=== PATIENT | female | born 1970 | race African-American/Black ===

== ENCOUNTER 2017-02-04 06:45 | Day surgery (SDC) | payer BC ==
[2017-02-03 12:22] VITALS: BMI 24.7
[~2017-02-04 06:45] MED LIST: LACTATED RINGERS SOLUTION 1,000 ML IV SCH; ONDANSETRON 4 MG/2 ML VIAL IVPUSH PRN; PROMETHAZINE HCL 25 MG/1 ML VIAL IVPUSH PRN; oxyCODONE HCL 5 MG TABLET PO PRN
[2017-02-04] MEDS ORDERED: PROPOFOL 20 ML ONE ×2 (07:21)
[2017-02-04] MEDS ORDERED: DEXAMETHASONE SOD PHOSPHATE 4 MG/1 ML VIAL ONE (07:24)
[2017-02-04] MEDS ORDERED: ONDANSETRON 4 MG/2 ML VIAL ONE (07:24)
[2017-02-04] MEDS ORDERED: KETOROLAC TROMETHAMINE 30 MG/1 ML VIAL ONE (07:24)
[2017-02-04] MEDS ORDERED: MINERAL OIL/PETROLATUM,WHITE 3.5 GM TUBE ONE (07:25)
[2017-02-04] MEDS ORDERED: MIDAZOLAM HCL 2 MG/2 ML SINGLE DOSE VIAL ONE ×2 (07:26)
[2017-02-04] MEDS ORDERED: DESFLURANE GAS 240 ML BOTTLE IH ONE (07:51)
[2017-02-04] MEDS ORDERED: ACETAMINOPHEN INJECTION 100 ML IVPB ONE (07:51)
[2017-02-04] MEDS ORDERED: SEVOFLURANE 250 ML BTL ONE (07:51)
[2017-02-04] MEDS ORDERED: LACTATED RINGERS SOLUTION 1,000 ML IV SCH ×2 (09:15→09:30)
[2017-02-04] MEDS ORDERED: IBUPROFEN 600 MG TABLET (FP) PO PRN (09:25)
[2017-02-04] MEDS ORDERED: ONDANSETRON 4 MG/2 ML VIAL IVPUSH PRN ×2 (09:50→09:51)
[2017-02-04] MEDS ORDERED: oxyCODONE HCL 5 MG TABLET PO PRN (09:51)
[2017-02-04] MEDS ORDERED: PROMETHAZINE HCL 25 MG/1 ML VIAL IVPUSH PRN (09:52)
[2017-02-04 10:49] VITALS: BP 141/80; PULSE 89; TEMP 97.7
--- NOTE | 2017-02-04 15:59 | OP ---
DATE OF OPERATION: 02/04/2017 PREOPERATIVE DIAGNOSIS: Endometrial polyp. POSTOPERATIVE DIAGNOSIS: Normal endometrial cavity. PROCEDURE: Diagnostic hysteroscopy and dilation and curettage. COMPLICATIONS: None. BLOOD LOSS: Minimal. FLUIDS: In 1 L of normal saline. DEFICIT: 100 mL. PROCEDURE: The patient was taken to the operating room, where general anesthesia was found to be adequately. She was placed in the dorsal lithotomy position, prepped and draped in the normal sterile fashion. A Maldonado catheter was placed into the patient's bladder. A bivalve exam revealed a slightly retroverted uterus, otherwise no adnexal masses were palpable. A speculum was placed into the patient's vagina and the anterior lip of the cervix was grasped with a single-tooth tenaculum. The cervix was then dilated in order to fit a diagnostic hysteroscopy. The hysteroscope was inserted under direct visual guidance. The cervix appeared to be tortuous upon insertion, initially requiring anterior and then posterior movements of the hysteroscope until the internal os as reached and then entered. Upon inspection of the endometrial cavity, it appeared that the uterus was positioned slightly posterior. Both ostia were visualized bilaterally, which were also posterolaterally, otherwise there were no abnormalities seen within the endometrial cavity. The endometrium appeared to be normal. There was a slight ridge posteriorly near the internal os. The hysteroscope was then removed. We proceeded with curettage of the endometrial cavity products, specimens which were sent to Pathology. This concluded our case. The tenaculum and the rest of the instruments were removed. There was excellent hemostasis, and the patient was taken to the recovery room in stable condition. Of note, findings, a tortuous cervix which appeared to 1st go anterior, then posterior, then back anterior again until the cavity was reached. Otherwise no abnormalities. dictating for Dr. Rajat Linda MD. RAJAT LINDA M.D. JOSE [id number]
--- NOTE | 2017-02-05 10:58 | PATH ---
Surgical Pathology Report Patient Name: CHANTEL SULLIVAN [facility]. Rec. #: [id number] /Age/Gender: 1970 (Age: 46) / F Account: [id number] Location: [facility] Taken: 02/04/2017 Received: 02/04/2017 Reported: 02/05/2017 Physicians: Rajat iLnda M.D. Specimen(s) Received ENDOMETRIAL CURETTINGS Clinical History Infertility, endometrial polyp Final Diagnosis ENDOMETRIUM, CURETTING: BENIGN SQUAMOUS EPITHELIUM, WITH SCANT INACTIVE ENDOMETRIUM, AND BENIGN ENDOCERVICAL TISSUE. NO CHRONIC ENDOMETRITIS IDENTIFIED. NO ENDOMETRIAL HYPERPLASIA OR CARCINOMA IDENTIFIED. Comment: Recommend correlation with clinical findings and follow up as clinically indicated. Electronically Signed Ganesh Bruce M.D. Gross Description Received in formalin labeled "endometrial curettings," is a 0.3 x 0.3 x 0.1 cm aggregate of mucus possibly containing soft tissue fragments. The formalin is filtered and the specimen is entirely submitted in one cassette. /02/04/2017 [facility]02/04/2017
== END 2017-02-04 11:00 | disposition home or self-care (01) ==
LOC: FASU 06:45
PROVIDERS: ATTEND Obstetrics & Gynecology Reproductive Endocrinology
PROC: 0UDB8ZX Extraction of Endometrium, Via Natural or Artificial Opening Endoscopic, Diagnostic (ICD-10-PCS; principal; 2017-02-04 08:37)
DX: Z03.89 Encounter for observation for other suspected diseases and conditions ruled out (principal)
CPT/HCPCS: 84703; 88305-TC; 94760